=== PATIENT | female | born 1965 | race Hispanic/Latino ===

== ENCOUNTER 2022-02-17 16:56 | Emergency (ER) | payer SELFPAY ==
[~2022-02-17] VITALS: Ht 160 cm; Wt 90.7 kg
[2022-02-17] MEDS ORDERED: KETOROLAC TROMETHAMINE 30 MG/ML VIAL IV STA (17:23)
[2022-02-17] MEDS ORDERED: SODIUM CHLORIDE 0.9% 1000ML 1,000 ML IV SCH (17:30)
[2022-02-17] MEDS ORDERED: ACETAMINOPHEN 325 MG TAB PO ONE (17:30)
[2022-02-17] MEDS ORDERED: METOCLOPRAMIDE HCL 10 MG/2ML VIAL IV ONE (17:30)
[2022-02-17] MEDS ORDERED: DIPHENHYDRAMINE HCL 25 MG CAP PO ONE (17:30)
[2022-02-17 17:43] LABS: BASOPHILS % 0.5 % (0.0-1.0); EOSINOPHILS # (AUTO) 0.1 (0.0-0.4); EOSINOPHILS % 1.1 % (0.0-6.0); HEMATOCRIT 43.6 % (34.2-44.1); HEMOGLOBIN 13.7 g/dL (12.0-16.0); LYMPHOCYTES # (AUTO) 3.2 (1.0-3.2); LYMPHOCYTES % 36.3 % (18.0-39.1); MEAN CORPUSCULAR HEMOGLOBIN 29.3 pg (28-32); MEAN CORPUSCULAR HGB CONC 31.4 g/dL (31-35); MEAN CORPUSCULAR VOLUME 93.2 fL (81-99); MONOCYTES # (AUTO) 0.5 (0.2-0.8); MONOCYTES % 5.2 % (4.4-11.3); NEUTROPHILS % 56.7 % (38.7-80.0); PLATELET COUNT 277 x10e3/uL (140-360); RED BLOOD COUNT 4.68 x10e6/uL (3.6-5.1); RED CELL DISTRIBUTION WIDTH 14.2 % (11.7-14.4)
[2022-02-17 17:53] LABS: INR 0.87; PROTHROMBIN TIME 12.6 seconds (11.9-14.5)
[2022-02-17 18:02] LABS: ALBUMIN 4.1 g/dL (3.5-5.0); ALBUMIN/GLOBULIN RATIO 1.1 (0.8-2.0); ANION GAP 15.8 mmol/L (8-16); CALCIUM 10.1 mg/dL (8.4-10.2); CREATININE, SERUM 0.8 mg/dL (0.57-1.11); POTASSIUM 3.8 mmol/L (3.5-5.1)
[2022-02-17] MEDS ORDERED: MECLIZINE HCL 12.5 MG TAB PO ONE (19:00)
[2022-02-17] MEDS ORDERED: MECLIZINE HCL 12.5 MG TAB ONE (19:13)
[2022-02-17] MEDS ORDERED: MECLIZINE HCL12.5 MG PO (19:34)
[2022-02-17 20:09] VITALS: BP 108/83
== END 2022-02-17 20:50 | disposition home or self-care (01) ==
LOC: ER 17:02
DX: R51.9 Headache, unspecified (principal); R42 Dizziness and giddiness; K21.9 Gastro-esophageal reflux disease without esophagitis
CPT/HCPCS: 36415; 70450; 80053; 84484; 85025; 85610; 87400; 93005; 99284; J1885; J2765; J7030; J8597

== ENCOUNTER 2023-02-03 10:48 | Emergency (ER) | payer BC ==
[~2023-02-03] VITALS: Ht 160 cm; Wt 91.2 kg
[~2023-02-03 10:48] MED LIST: MECLIZINE HCL12.5 MG PO
[2023-02-03 11:49] LABS: BASOPHILS % 0.4 % (0.0-1.0); EOSINOPHILS # (AUTO) 0.1 (0.0-0.4); EOSINOPHILS % 1.2 % (0.0-6.0); HEMATOCRIT 34.8 % (34.2-44.1); HEMOGLOBIN 11.3 g/dL (12.0-16.0); LYMPHOCYTES # (AUTO) 2.6 (1.0-3.2); MEAN CORPUSCULAR HGB CONC 32.5 g/dL (31-35); MEAN CORPUSCULAR VOLUME 80.2 fL (81-99); MONOCYTES # (AUTO) 0.4 (0.2-0.8); MONOCYTES % 5.8 % (4.4-11.3); NEUTROPHILS # (AUTO) 4.2 (2.1-6.9); NEUTROPHILS % 57.5 % (38.7-80.0); PLATELET COUNT 317 x10e3/uL (140-360); RED BLOOD COUNT 4.34 x10e6/uL (3.6-5.1); RED CELL DISTRIBUTION WIDTH 15.5 % (11.7-14.4); WHITE BLOOD COUNT 7.29 x10e3/uL (4.8-10.8)
[2023-02-03 11:53] LABS: CLARITY,URINE SL CLOUDY (CLEAR); COLOR,URINE YELLOW (YELLOW); KETONES,URINE NEGATIVE (NEGATIVE); LEUKOCYTE ESTERASE ,URINE NEGATIVE (NEGATIVE); NITRITE,URINE NEGATIVE (NEGATIVE); PROTEIN,URINE DIPSTICK TRACE (NEGATIVE); URINE UROBILINOGEN 0.2 mg/dL (0.2 - 1)
[2023-02-03 11:56] VITALS: O2SAT 99
[2023-02-03 12:05] LABS: BACTERIA,URINE MODERATE /HPF; EPITHELIAL CELLS,URINE MODERATE /LPF; RBC,URINE 0-5 /HPF (0-5); WBC,URINE (MAN) 0-5 /HPF (0-5)
[2023-02-03 12:10] LABS: ALBUMIN 4.1 g/dL (3.5-5.0); ALBUMIN/GLOBULIN RATIO 1.2 (0.8-2.0); ANION GAP 11.5 mmol/L (8-16); CALCIUM 9.8 mg/dL (8.4-10.2); CREATININE, SERUM 0.98 mg/dL (0.57-1.11); MAGNESIUM 1.7 MG/DL (1.3-2.1); POTASSIUM 3.5 mmol/L (3.5-5.1)
[2023-02-03] MEDS ORDERED: IOPAMIDOL 370 MG/ML 100 ML INFUS..BTL INJ ONE (12:40)
[2023-02-03] MEDS ORDERED: DICYCLOMINE HCL 20 MG/2 ML VIAL IM ONE (15:30)
[2023-02-03] MEDS ORDERED: DICYCLOMINE HCL20 MG PO (16:24)
== END 2023-02-03 16:48 | disposition home or self-care (01) ==
LOC: ER 10:52
DX: R10.32 Left lower quadrant pain (principal); K57.90 Diverticulosis of intestine, part unspecified, without perforation or abscess without bleeding; K76.0 Fatty (change of) liver, not elsewhere classified; D64.9 Anemia, unspecified; K21.9 Gastro-esophageal reflux disease without esophagitis
CPT/HCPCS: 36415; 71045; 74177; 80053; 81001; 83690; 83735; 85025; 87086; 93005; 99284; J0500; Q9967

== ENCOUNTER 2023-05-11 16:04 | Inpatient (IN) | payer BC ==
[~2023-05-11] VITALS: Ht 160 cm; Wt 96.2 kg
[~2023-05-11 16:04] MED LIST changes: +ACETAMINOPHEN-1 EAC4 PO; +ACIDOPHILUS PR1 EAC2 PO; +BENZONATATE200 MG PO; +CARAFATE1 GM PO; +DICYCLOMINE HCL20 MG PO; +FEROCON CAPSUL1 EACH PO; +FIORICET 50-301 EACH PO; +LIBRAX CAPSULE1 EACH PO; +MECLIZINE HCL25 MG PO; +MESALAMINE1.2 GM PO; +MIRALAX17 GM PO; +NEPHRO-VITE TABL1 EA PO; +ONE DAILY COMP1 EACH PO; +PANTOPRAZOLE SO40 MG PO; +PREDNISONE20 MG PO; +PRILOSEC OTC20 MG PO; +REGLAN10 MG PO; +RENA-VITE TABL0.8 MG PO; +SORE THROAT LO1 EAC3 PO; +SUCRALFATE1 GM PO
[2023-05-11 17:50] LABS: BASOPHILS % 0.3 % (0.0-1.0); EOSINOPHILS # (AUTO) 0.1 (0.0-0.4); EOSINOPHILS % 0.8 % (0.0-6.0); HEMATOCRIT 38.8 % (34.2-44.1); HEMOGLOBIN 12.4 g/dL (12.0-16.0); LYMPHOCYTES # (AUTO) 3.2 (1.0-3.2); LYMPHOCYTES % 30.5 % (18.0-39.1); MEAN CORPUSCULAR HEMOGLOBIN 28.3 pg (28-32); MEAN CORPUSCULAR VOLUME 88.6 fL (81-99); MONOCYTES # (AUTO) 0.7 (0.2-0.8); MONOCYTES % 6.7 % (4.4-11.3); NEUTROPHILS # (AUTO) 6.5 (2.1-6.9); NEUTROPHILS % 61.1 % (38.7-80.0); PLATELET COUNT 277 x10e3/uL (140-360); RED BLOOD COUNT 4.38 x10e6/uL (3.6-5.1); RED CELL DISTRIBUTION WIDTH 18.8 % (11.7-14.4); WHITE BLOOD COUNT 10.63 x10e3/uL (4.8-10.8)
[2023-05-11 17:53] LABS: BILIRUBIN,URINE NEGATIVE (NEGATIVE); CLARITY,URINE SL CLOUDY (CLEAR); COLOR,URINE YELLOW (YELLOW); GLUCOSE, URINE NEGATIVE (NEGATIVE); KETONES,URINE NEGATIVE (NEGATIVE); LEUKOCYTE ESTERASE ,URINE NEGATIVE (NEGATIVE); NITRITE,URINE NEGATIVE (NEGATIVE); PH,URINE 6 (5 - 7); PROTEIN,URINE DIPSTICK NEGATIVE (NEGATIVE); URINE UROBILINOGEN 0.2 mg/dL (0.2 - 1)
[2023-05-11 18:02] LABS: ALBUMIN/GLOBULIN RATIO 1.2 (0.8-2.0); ANION GAP 14.7 mmol/L (8-16); BILIRUBIN,TOTAL 0.5 mg/dL (0.2-1.2); CREATININE, SERUM 0.84 mg/dL (0.57-1.11); POTASSIUM 3.7 mmol/L (3.5-5.1); TOTAL PROTEIN 7.3 g/dL (6.5-8.1)
[2023-05-11 18:03] LABS: BACTERIA,URINE MANY /HPF; EPITHELIAL CELLS,URINE MANY /LPF; RBC,URINE 0-5 /HPF (0-5); WBC,URINE (MAN) 0-5 /HPF (0-5)
[2023-05-11] MEDS: SODIUM CHLORIDE 0.9% 1000ML 1,000 ML IV STA (18:14)
[2023-05-11] MEDS: ONDANSETRON HCL INJ 2MG/ML 2ML 2 MG/ML VIAL IV PRN (18:14)
[2023-05-11] MEDS: DICYCLOMINE HCL 20 MG/2 ML VIAL IM ONE (18:19)
[2023-05-11] MEDS ORDERED: ONDANSETRON HCL INJ 2MG/ML 2ML 2 MG/ML VIAL IV PRN (18:45)
[2023-05-11] MEDS ORDERED: IOPAMIDOL 370 MG/ML 100 ML INFUS..BTL INJ ONE (18:46)
[2023-05-11 20:30] VITALS: PULSE 70; RESP 18; O2SAT 99
[2023-05-11] MEDS: HYDROMORPHONE 1MG/1ML INJ IV PRN (20:55)
[2023-05-11] MEDS: SODIUM CHLORIDE 0.9% 1000ML 1,000 ML IV SCH (22:33)
[2023-05-12 05:34] LABS: BASOPHILS % 0.1 % (0.0-1.0); EOSINOPHILS # (AUTO) 0.1 (0.0-0.4); EOSINOPHILS % 1.3 % (0.0-6.0); HEMATOCRIT 34.9 % (34.2-44.1); HEMOGLOBIN 11.1 g/dL (12.0-16.0); LYMPHOCYTES # (AUTO) 2.8 (1.0-3.2); LYMPHOCYTES % 29.9 % (18.0-39.1); MEAN CORPUSCULAR HGB CONC 31.8 g/dL (31-35); MEAN CORPUSCULAR VOLUME 87.9 fL (81-99); MONOCYTES # (AUTO) 0.6 (0.2-0.8); MONOCYTES % 5.8 % (4.4-11.3); NEUTROPHILS # (AUTO) 5.9 (2.1-6.9); NEUTROPHILS % 62.5 % (38.7-80.0); PLATELET COUNT 222 x10e3/uL (140-360); RED BLOOD COUNT 3.97 x10e6/uL (3.6-5.1); RED CELL DISTRIBUTION WIDTH 18.6 % (11.7-14.4); WHITE BLOOD COUNT 9.43 x10e3/uL (4.8-10.8)
[2023-05-12 05:58] LABS: ANION GAP 11.9 mmol/L (8-16); CALCIUM 9.2 mg/dL (8.4-10.2); CREATININE, SERUM 0.76 mg/dL (0.57-1.11); POTASSIUM 3.9 mmol/L (3.5-5.1)
[2023-05-12] MEDS ORDERED: ACETAMINOPHEN 1000 MG/100 ML IV PRN (08:45)
[2023-05-12] MEDS ORDERED: GADOBENATE DIMEGLUMINE 1 ML IV ONE (12:18)
[2023-05-12 14:50] VITALS: PULSE 68; RESP 15; O2SAT 97
[2023-05-12 17:30] VITALS: BP 118/81; PULSE 73; RESP 19; TEMP 98.2; O2SAT 100
[2023-05-12 20:00] VITALS: BP 132/87; PULSE 77; RESP 17; TEMP 98.6; O2SAT 98
[2023-05-12 20:13] VITALS: PULSE 64; RESP 15; O2SAT 96
[2023-05-12] MEDS ORDERED: LACTATED RINGER'S 1,000 ML INJ SCH (22:30)
[2023-05-12] MEDS: LACTATED RINGER'S 1,000 ML INJ SCH (22:43)
[2023-05-13] VITALS (10 sets, daily range): BP systolic 102–132; BP diastolic 72–87; PULSE 64–78; RESP 15–20; TEMP 98–98.7; O2SAT 96–99
[2023-05-13] MEDS: METOCLOPRAMIDE HCL 10 MG/2ML VIAL IV ONE (01:05)
[2023-05-13] MEDS: METOCLOPRAMIDE HCL 10 MG/2ML VIAL IV SCH (06:05)
[2023-05-13 07:01] LABS: BASOPHILS % 0.2 % (0.0-1.0); EOSINOPHILS # (AUTO) 0.1 (0.0-0.4); EOSINOPHILS % 1.3 % (0.0-6.0); HEMATOCRIT 36.7 % (34.2-44.1); HEMOGLOBIN 11.3 g/dL (12.0-16.0); LYMPHOCYTES # (AUTO) 1.9 (1.0-3.2); LYMPHOCYTES % 22.5 % (18.0-39.1); MEAN CORPUSCULAR HEMOGLOBIN 28.5 pg (28-32); MEAN CORPUSCULAR HGB CONC 30.8 g/dL (31-35); MEAN CORPUSCULAR VOLUME 92.4 fL (81-99); MONOCYTES # (AUTO) 0.5 (0.2-0.8); MONOCYTES % 5.5 % (4.4-11.3); NEUTROPHILS # (AUTO) 5.8 (2.1-6.9); NEUTROPHILS % 70.1 % (38.7-80.0); PLATELET COUNT 208 x10e3/uL (140-360); RED BLOOD COUNT 3.97 x10e6/uL (3.6-5.1); RED CELL DISTRIBUTION WIDTH 18.1 % (11.7-14.4); WHITE BLOOD COUNT 8.24 x10e3/uL (4.8-10.8)
[2023-05-13 07:43] LABS: ALBUMIN 3.5 g/dL (3.5-5.0); ALBUMIN/GLOBULIN RATIO 1.2 (0.8-2.0); ANION GAP 12.7 mmol/L (8-16); BILIRUBIN,TOTAL 1.2 mg/dL (0.2-1.2); CALCIUM 9.3 mg/dL (8.4-10.2); CREATININE, SERUM 0.75 mg/dL (0.57-1.11); POTASSIUM 3.7 mmol/L (3.5-5.1); TOTAL PROTEIN 6.4 g/dL (6.5-8.1)
[2023-05-14 00:26] VITALS: BP 144/91; PULSE 83; RESP 17; TEMP 98.3; O2SAT 97
[2023-05-14 04:00] VITALS: BP 133/88; PULSE 72; RESP 15; TEMP 98; O2SAT 93
[2023-05-14 07:10] LABS: CALCIUM 9.2 mg/dL (8.4-10.2); CREATININE, SERUM 0.72 mg/dL (0.57-1.11)
[2023-05-14 07:30] VITALS: BP 133/91; PULSE 64; RESP 18; TEMP 98.1; O2SAT 98
[2023-05-14 08:27] VITALS: BP 133/91; PULSE 64; RESP 18; TEMP 98.1; O2SAT 98
[2023-05-14 20:00] VITALS: BP 133/91; PULSE 64; RESP 18; TEMP 98.1; O2SAT 98
[2023-05-14 20:20] VITALS: BP 126/74; PULSE 80; RESP 18; TEMP 98; O2SAT 97
[2023-05-15] VITALS (8 sets, daily range): BP systolic 124–136; BP diastolic 81–94; PULSE 64–80; RESP 18–20; TEMP 97.5–98.6; O2SAT 97–100
[2023-05-15 07:29] LABS: ALBUMIN 3.4 g/dL (3.5-5.0); ALBUMIN/GLOBULIN RATIO 1.3 (0.8-2.0); ANION GAP 12.6 mmol/L (8-16); BILIRUBIN,TOTAL 0.8 mg/dL (0.2-1.2); CALCIUM 9.6 mg/dL (8.4-10.2); CREATININE, SERUM 0.73 mg/dL (0.57-1.11); POTASSIUM 3.6 mmol/L (3.5-5.1); TOTAL PROTEIN 6.1 g/dL (6.5-8.1)
[2023-05-15] MEDS: POLYETHYLENE GLYCOL 3350 17 GM PACK PO SCH (14:12)
[2023-05-15] MEDS: BISACODYL 5 MG TAB EC PO ONE (14:32)
[2023-05-16] VITALS (7 sets, daily range): BP systolic 123–144; BP diastolic 80–98; PULSE 65–77; RESP 18–20; TEMP 97.6–98.4; O2SAT 93–100
[2023-05-16 05:29] LABS: BASOPHILS % 0.3 % (0.0-1.0); EOSINOPHILS # (AUTO) 0.1 (0.0-0.4); EOSINOPHILS % 1.6 % (0.0-6.0); HEMATOCRIT 33.8 % (34.2-44.1); HEMOGLOBIN 10.8 g/dL (12.0-16.0); LYMPHOCYTES # (AUTO) 1.8 (1.0-3.2); LYMPHOCYTES % 28.1 % (18.0-39.1); MEAN CORPUSCULAR HEMOGLOBIN 28.2 pg (28-32); MEAN CORPUSCULAR VOLUME 88.3 fL (81-99); MONOCYTES # (AUTO) 0.4 (0.2-0.8); MONOCYTES % 6.5 % (4.4-11.3); NEUTROPHILS # (AUTO) 4.1 (2.1-6.9); NEUTROPHILS % 63.3 % (38.7-80.0); PLATELET COUNT 208 x10e3/uL (140-360); RED BLOOD COUNT 3.83 x10e6/uL (3.6-5.1); RED CELL DISTRIBUTION WIDTH 17.1 % (11.7-14.4); WHITE BLOOD COUNT 6.45 x10e3/uL (4.8-10.8)
[2023-05-16 05:50] LABS: ALANINE AMINOTRANSFERASE 19 IU/L (0-55); ALBUMIN 3.4 g/dL (3.5-5.0); ALBUMIN/GLOBULIN RATIO 1.2 (0.8-2.0); ALKALINE PHOSPHATASE 43 IU/L (40-150); ANION GAP 12.5 mmol/L (8-16); BILIRUBIN,TOTAL 0.6 mg/dL (0.2-1.2); BLOOD UREA NITROGEN < 5 mg/dL (7-26); CALCIUM 9.3 mg/dL (8.4-10.2); CARBON DIOXIDE 25 mmol/L (22-29); CHLORIDE 106 mmol/L (98-107); CREATININE, SERUM 0.77 mg/dL (0.57-1.11); EST GLOMERULAR FILTRATION RATE 90 ML/MIN (>=60); GLUCOSE 102 mg/dL (74-118); LIPASE 372 U/L (8-78); POTASSIUM 3.5 mmol/L (3.5-5.1); SODIUM 140 mmol/L (136-145); TOTAL PROTEIN 6.3 g/dL (6.5-8.1)
[2023-05-16 05:52] LABS: BUN/CREATININE RATIO 6 (6-25)
[2023-05-17] VITALS: BP 149/86; PULSE 74; RESP 20; TEMP 98; O2SAT 96
[2023-05-17 04:00] VITALS: BP 134/83; PULSE 70; RESP 20; TEMP 98.7; O2SAT 93
[2023-05-17 06:11] LABS: ANION GAP 12.5 mmol/L (8-16); BLOOD UREA NITROGEN < 5 mg/dL (7-26); CALCIUM 9.2 mg/dL (8.4-10.2); CARBON DIOXIDE 25 mmol/L (22-29); CHLORIDE 104 mmol/L (98-107); CREATININE, SERUM 0.82 mg/dL (0.57-1.11); EST GLOMERULAR FILTRATION RATE 84 ML/MIN (>=60); GLUCOSE 123 mg/dL (74-118); LIPASE 432 U/L (8-78); POTASSIUM 3.5 mmol/L (3.5-5.1); SODIUM 138 mmol/L (136-145)
[2023-05-17 06:18] LABS: BUN/CREATININE RATIO 6 (6-25)
[2023-05-17 08:30] VITALS: BP 165/95; PULSE 66; RESP 18; TEMP 98.5; O2SAT 97
[2023-05-17 09:00] VITALS: BP 165/95; PULSE 66; RESP 18; TEMP 98.5; O2SAT 97
[2023-05-17] MEDS ORDERED: DEXTROSE 5%/0.45% SOD CHL 1,000 ML IV ONE (09:00)
[2023-05-17 11:36] VITALS: BP 124/93; PULSE 77; RESP 20; TEMP 97.8; O2SAT 99
[2023-05-17] MEDS ORDERED: KETOROLAC TROMETHAMINE 30 MG/ML VIAL IV PRN (13:45)
[2023-05-17] MEDS ORDERED: PROMETHAZINE12.5 M1 PO (14:01)
[2023-05-17 16:03] VITALS: BP 138/82; PULSE 85; RESP 18; O2SAT 98
== END 2023-05-17 16:57 | disposition home or self-care (01) | DRG 439 ==
LOC: ER 16:40 → ERHOLD 18:38 → MED/SURG2 05-12 17:16
PROVIDERS: ADMIT Internal Medicine; ATTEND Internal Medicine
DX: K85.90 Acute pancreatitis without necrosis or infection, unspecified (principal); K50.90 Crohn's disease, unspecified, without complications; R42 Dizziness and giddiness; R11.2 Nausea with vomiting, unspecified; Z90.49 Acquired absence of other specified parts of digestive tract; E66.9 Obesity, unspecified; K85.80 Other acute pancreatitis without necrosis or infection; K21.9 Gastro-esophageal reflux disease without esophagitis; D64.9 Anemia, unspecified; G43.909 Migraine, unspecified, not intractable, without status migrainosus; Z20.822 Contact with and (suspected) exposure to COVID-19; Z68.37 Body mass index [BMI] 37.0-37.9, adult
CPT/HCPCS: 36415; 71045; 74177; 74183; 80048; 80053; 81001; 83690; 83735; 84478; 84484; 85025; 86301; 93005; 94799; 99284; J1170; J2405; J2765; J7030; Q9967; U0002

== ENCOUNTER 2024-04-17 22:40 | Emergency (ER) | payer BC ==
[~2024-04-17] VITALS: Ht 160 cm; Wt 78.0 kg
[~2024-04-17 22:40] MED LIST changes: +AMOX TR-K CLV1 EAC2 PO; +CYCLOBENZAPRINE10 MG PO; +HYDROCODON-ACE1 EA11 PO; +METRONIDAZOLE500 MG PO; +ONDANSETRON ODT4 MG PO; +ONDANSETRON ODT4 MG SL; +PROMETHAZINE12.5 M1 PO; +ULTRAM 50MG50 MG PO; +ZITHROMAX500 MG PO
[2024-04-17 22:58] VITALS: PULSE 81; RESP 19; TEMP 98.7; O2SAT 100
[2024-04-18] MEDS: ACETAMINOPHEN 325 MG TAB PO ONE (01:29)
[2024-04-18] MEDS ORDERED: MEDROL4 M2 PO (01:34)
[2024-04-18] MEDS ORDERED: TRAMADOL HCL 50 MG TAB ONE (01:39)
[2024-04-18] MEDS: TRAMADOL HCL 50 MG TAB PO ONE (01:50)
== END 2024-04-18 01:51 | disposition home or self-care (01) ==
LOC: ER 23:07
DX: S93.491A Sprain of other ligament of right ankle, initial encounter (principal); X50.1XXA Overexertion from prolonged static or awkward postures, initial encounter; Y93.01 Activity, walking, marching and hiking; Y92.89 Other specified places as the place of occurrence of the external cause; K21.9 Gastro-esophageal reflux disease without esophagitis; M54.9 Dorsalgia, unspecified; G89.29 Other chronic pain; Z87.19 Personal history of other diseases of the digestive system
CPT/HCPCS: 99284

== ENCOUNTER 2024-10-29 18:42 | Emergency (ER) | payer BC ==
[~2024-10-29] VITALS: Ht 160 cm; Wt 78.0 kg
[~2024-10-29 18:42] MED LIST changes: +MEDROL4 M2 PO
[2024-10-29 19:21] VITALS: TEMP 99.1
[2024-10-29 19:28] LABS: BASOPHILS % 0.2 % (0.0-1.0); EOSINOPHILS % 1.9 % (0.0-6.0); LYMPHOCYTES % 12.5 % (18.0-39.1); MONOCYTES % 5.3 % (4.4-11.3); NEUTROPHILS % 79.6 % (38.7-80.0); RED CELL DISTRIBUTION WIDTH 14.4 % (11.7-14.4)
[2024-10-29] MEDS: DICYCLOMINE HCL 20 MG/2 ML VIAL IM ONE (19:32)
[2024-10-29] MEDS: SODIUM CHLORIDE 0.9% 1000ML 1,000 ML IV STA (19:32)
[2024-10-29] MEDS: ONDANSETRON HCL INJ 2MG/ML 2ML 2 MG/ML VIAL IV PRN (19:32)
[2024-10-29 19:49] LABS: EST GLOMERULAR FILTRATION RATE 63.0 ML/MIN (>=60)
[2024-10-29 19:52] LABS: LEUKOCYTE ESTERASE ,URINE NEGATIVE (NEGATIVE)
[2024-10-29 19:53] LABS: PROTEIN,URINE DIPSTICK 1+ (NEGATIVE); URINE UROBILINOGEN 0.2 mg/dL (0.2 - 1)
[2024-10-29] MEDS: BELLADONNA ALK/PHENOBARBITAL 5 ML UDC PO STA (19:57)
[2024-10-29] MEDS: MAGNESIUM/ALUMINUM/SIMETHICONE 30 ML UDC PO ONE (19:57)
[2024-10-29] MEDS: LIDOCAINE VISC 2% SOLN 15 ML UDC PO ONE (19:57)
[2024-10-29] MEDS ORDERED: POTASSIUM CITRATE ER 10 MEQ TAB PO ONE (20:00)
[2024-10-29 20:03] LABS: EPITHELIAL CELLS,URINE MODERATE /LPF; WBC,URINE (MAN) 0-5 /HPF (0-5)
[2024-10-29] MEDS: POTASSIUM CHLORIDE 20 MEQ TAB CR PO STA (20:27)
[2024-10-29] MEDS ORDERED: IOPAMIDOL 370 MG/ML 100 ML INFUS..BTL INJ ONE (20:50)
[2024-10-29] MEDS: FENTANYL CITRATE/PF 100MCG/2 ML INJ IV PRN (21:46)
[2024-10-29 21:55] VITALS: PULSE 103; RESP 17
[2024-10-29] MEDS ORDERED: ONDANSETRON ODT4 MG PO (23:06)
[2024-10-29] MEDS ORDERED: PEPCID20 MG PO (23:06)
[2024-10-29] MEDS ORDERED: CARAFATE1 GM PO (23:07)
[2024-10-29 23:22] VITALS: BP 102/64; PULSE 99; RESP 20; O2SAT 98
== END 2024-10-29 23:50 | disposition home or self-care (01) ==
LOC: ER 18:49
DX: R10.13 Epigastric pain (principal); K29.70 Gastritis, unspecified, without bleeding; K52.9 Noninfective gastroenteritis and colitis, unspecified; M54.9 Dorsalgia, unspecified; G89.29 Other chronic pain; R94.31 Abnormal electrocardiogram [ECG] [EKG]; Z87.19 Personal history of other diseases of the digestive system
CPT/HCPCS: 36415; 74177; 80053; 81001; 83690; 84484; 85025; 93005; 99284; J0500; J2405; J2470; J3010; J7030; Q9967